=== PATIENT | male | born 1945 | race Caucasian/White ===

== ENCOUNTER 2019-08-17 19:07 | Inpatient (IN) ==
[2019-08-17] MEDS ORDERED: Ketorolac 15 MG/ML VIAL IVP PRN (21:34)
[2019-08-17] MEDS ORDERED: Naloxone 0.4 MG/ML INJ IVP PRN (21:34)
[2019-08-17] MEDS ORDERED: Ondansetron 4 MG/2 ML VIAL IVP PRN (21:34)
[2019-08-17] MEDS ORDERED: Acetaminophen 325 MG TABLET PO PRN (21:34)
[2019-08-17] MEDS ORDERED: Ringers Solution, Lactated 1,000 ML IVC SCH (21:45)
[2019-08-17] MEDS ORDERED: Dextrose Gel 15 GM/37.5 ML TUBE PO PRN ×2 (22:01)
[2019-08-17] MEDS ORDERED: D5% in Water 1,000 ML IVC PRN (22:01)
[2019-08-17] MEDS ORDERED: *HR* Dextrose 50 % in Water (Syg) 50 ML SYRINGE IVP PRN (22:01)
[2019-08-17] MEDS ORDERED: Gabapentin 300 MG CAPSULE PO ONE (23:28)
[2019-08-18] MEDS ORDERED: MOM Conc 10 ML UD.LIQ PO PRN ×2 (00:16→12:57)
[2019-08-18] MEDS ORDERED: Sennosides/Docusate Sodium TABLET PO PRN (00:16)
[2019-08-18] MEDS: Insulin LISPRO 300 UNITS/3 ML VIAL SQ SCH ×3 (01:00→18:00)
[2019-08-18] MEDS ORDERED: Morphine Sulfate 2 MG/ML SYRINGE IVP ONE (04:23)
[2019-08-18] MEDS ORDERED: Famotidine 20 MG/2 ML VIAL IVP ONE (05:53)
[2019-08-18 07:15] LABS: Basophils # 0.1 K/mcL (0.0-0.2); Basophils % 0.6 %; Eosinophils # 0.2 K/mcL (0.0-0.6); Eosinophils % 2.1 %; Hematocrit 44.6 % (37.5-50.1); Hemoglobin 13.8 g/dL (12.9-16.9); Immature Granulocytes % 0.5 % (0-4); Lymphocytes # 1.7 K/mcL (0.6-4.6); Lymphocytes % 20.7 %; Mean Corpuscular HGB Conc 30.9 g/dL (31.6-35.5); Mean Corpuscular Hemoglobin 28.2 pg (28.0-33.3); Mean Corpuscular Volume 91.2 fL (83.0-100.0); Mean Platelet Volume 11.1 fL (9.4-12.4); Monocytes # 0.5 K/mcL (0.0-1.3); Monocytes % 6.1 %; Neutrophils # 5.9 K/mcL (1.6-8.9); Platelet Count 141 K/mcL (140-400); Red Blood Count 4.89 M/mcL (4.19-5.50); Red Cell Distribution Width 13.4 % (11.5-14.5); White Blood Count 8.4 K/mcL (4.3-11.1)
[2019-08-18 07:17] LABS: INR 1.2; Prothrombin Time 13.7 Seconds (9.4-12.1)
[2019-08-18 07:32] LABS: BUN/Creatinine Ratio 34 (6-26); Blood Urea Nitrogen 32 mg/dL (8-23); Calcium 8.9 mg/dL (8.6-10.3); Carbon Dioxide 30 mEq/L (23-29); Chloride 103 mEq/L (98-107); Glucose 206 mg/dL (70-105); Osmolality,Calculated 301 (280-300); Potassium 3.9 mEq/L (3.5-5.1); Sodium 139 mEq/L (136-145); eGFR For African Americans > 60 (> 60); eGFR For Non-African Americans > 60 (> 60)
[2019-08-18] MEDS ORDERED: Aspirin Enteric Coated 81 MG Tablet PO SCH (09:00)
[2019-08-18] MEDS ORDERED: Metoprolol XL (24 HR) Succ 50 MG TAB.ER.24H PO SCH (09:00)
[2019-08-18] MEDS ORDERED: Dexamethasone 4 MG/ML VIAL ONE (09:37)
[2019-08-18] MEDS ORDERED: Lidocaine -MPF 2% 2 ML VIAL ONE ×2 (09:37)
[2019-08-18] MEDS ORDERED: Ondansetron 4 MG/2 ML VIAL ONE (09:37)
[2019-08-18] MEDS ORDERED: *HR* Propofol 200 MG/20 ML VIAL IVP ONE (10:03)
[2019-08-18] MEDS ORDERED: *HR* FentaNYL (PF) 100 MCG/2 ML VIAL ONE ×2 (10:03→11:07)
[2019-08-18] MEDS ORDERED: *HR* Succinylcholine 200 MG/10 ML VIAL IVP ONE (10:04)
[2019-08-18] MEDS ORDERED: Ethanol\\Acetic Acid\\Na Ace\\Ben 1,000 ML IRRIG.SOLN IR ONE (10:05)
[2019-08-18] MEDS ORDERED: *HR* HYDROmorphone PF 0.5 MG/0.5 ML SYRINGE IVP PRN ×2 (10:07→12:57)
[2019-08-18] MEDS ORDERED: *HR* OxyCODONE Immed Rel 5 MG TABLET PO PRN (10:07)
[2019-08-18] MEDS ORDERED: Ondansetron 4 MG/2 ML VIAL IVP ONE (10:07)
[2019-08-18] MEDS ORDERED: Famotidine 20 MG/2 ML VIAL ONE (10:16)
[2019-08-18] MEDS ORDERED: *HR* Rocuronium Bromide 50 MG/5 ML VIAL ONE (10:50)
[2019-08-18] MEDS ORDERED: *HR* PHENYLEPHRINE 1,000 MCG/10 ML SYRINGE IVP ONE (11:17)
[2019-08-18] MEDS ORDERED: EPHEDrine 50 MG/ML VIAL ONE (11:39)
[2019-08-18] MEDS ORDERED: *HR* Dextrose 50 % in Water (Syg) 50 ML SYRINGE IVP PRN (12:57)
[2019-08-18] MEDS ORDERED: Dextrose Gel 15 GM/37.5 ML TUBE PO PRN ×2 (12:57)
[2019-08-18] MEDS ORDERED: Sennosides 8.6 MG TABLET PO PRN (12:57)
[2019-08-18] MEDS ORDERED: D5% in Water 1,000 ML IVC PRN (12:57)
[2019-08-18] MEDS ORDERED: *HR* Promethazine 25 MG/ML VIAL IVP PRN (12:57)
[2019-08-18] MEDS ORDERED: Ondansetron 4 MG/2 ML VIAL IVP PRN (12:57)
[2019-08-18] MEDS ORDERED: Ringers Solution, Lactated 1,000 ML IVC SCH ×2 (12:57)
[2019-08-18] MEDS ORDERED: HYDROcodone BIT/Homatropine 5 MG TABLET PO PRN (12:57)
[2019-08-18] MEDS ORDERED: Naloxone 0.4 MG/ML INJ IVP PRN (12:57)
[2019-08-18 12:58] LABS: Hemoglobin 11.7 g/dL (12.9-16.9)
[2019-08-18] MEDS: Ascorbic Acid 500 MG TABLET PO SCH (16:00)
[2019-08-18] MEDS: ceFAZolin 2,000 MG in 0.9 % Sodium Chloride 100 ML IVPB SCH (17:38)
[2019-08-18] MEDS ORDERED: *HR* Heparin 5,000 UNIT/ML VIAL SQ SCH (18:00)
[2019-08-19] MEDS: ceFAZolin 2,000 MG in 0.9 % Sodium Chloride 100 ML IVPB SCH (02:03)
[2019-08-19 02:20] LABS: Hematocrit 29.4 % (37.5-50.1); Hemoglobin 9.3 g/dL (12.9-16.9); Immature Platelets 6.4 % (1.1-6.1); Mean Corpuscular HGB Conc 31.6 g/dL (31.6-35.5); Mean Corpuscular Hemoglobin 28.4 pg (28.0-33.3); Mean Corpuscular Volume 89.9 fL (83.0-100.0); Mean Platelet Volume 11.7 fL (9.4-12.4); Red Blood Count 3.27 M/mcL (4.19-5.50); Red Cell Distribution Width 13.5 % (11.5-14.5)
[2019-08-19 02:37] LABS: BUN/Creatinine Ratio 40 (6-26); Blood Urea Nitrogen 46 mg/dL (8-23); Carbon Dioxide 25 mEq/L (23-29); Chloride 102 mEq/L (98-107); Potassium 4.3 mEq/L (3.5-5.1); Sodium 134 mEq/L (136-145); eGFR For African Americans > 60 (> 60); eGFR For Non-African Americans > 60 (> 60)
[2019-08-19 03:09] LABS: Glucose 264 mg/dL (70-105); Osmolality,Calculated 299 (280-300)
[2019-08-19] MEDS: Insulin LISPRO 300 UNITS/3 ML VIAL SQ SCH ×3 (07:46→18:13)
[2019-08-19] MEDS: Metoprolol XL (24 HR) Succ 50 MG TAB.ER.24H PO SCH (07:47)
[2019-08-19] MEDS: Multivit/Ca/Min/Fe/FA 1 TAB TABLET PO SCH (07:47)
[2019-08-19] MEDS: Ascorbic Acid 500 MG TABLET PO SCH ×2 (07:47→18:13)
[2019-08-19] MEDS: Aspirin Enteric Coated 81 MG Tablet PO SCH (07:48)
[2019-08-19] MEDS: *HR* OxyCODONE Immed Rel 5 MG TABLET PO PRN (07:55)
[2019-08-19 13:44] LABS: Hematocrit 29.6 % (37.5-50.1); Hemoglobin 9.4 g/dL (12.9-16.9)
[2019-08-19] MEDS: Insulin DETEMIR 100 UNIT/ML X5UNITS SQ SCH (18:13)
[2019-08-20 02:47] LABS: Hematocrit 25.7 % (37.5-50.1); Hemoglobin 8.4 g/dL (12.9-16.9); Mean Corpuscular HGB Conc 32.7 g/dL (31.6-35.5); Mean Corpuscular Hemoglobin 29.1 pg (28.0-33.3); Mean Corpuscular Volume 88.9 fL (83.0-100.0); Mean Platelet Volume 11.5 fL (9.4-12.4); Platelet Count 115 K/mcL (140-400); Red Blood Count 2.89 M/mcL (4.19-5.50); Red Cell Distribution Width 13.6 % (11.5-14.5); White Blood Count 7.3 K/mcL (4.3-11.1)
[2019-08-20 03:11] LABS: BUN/Creatinine Ratio 42 (6-26); Blood Urea Nitrogen 32 mg/dL (8-23); Calcium 8.3 mg/dL (8.6-10.3); Carbon Dioxide 27 mEq/L (23-29); Chloride 101 mEq/L (98-107); Glucose 152 mg/dL (70-105); Osmolality,Calculated 288 (280-300); Potassium 4.1 mEq/L (3.5-5.1); Sodium 134 mEq/L (136-145); eGFR For African Americans > 60 (> 60); eGFR For Non-African Americans > 60 (> 60)
[2019-08-20] MEDS: *HR* OxyCODONE Immed Rel 5 MG TABLET PO PRN (05:48)
[2019-08-20] MEDS: Aspirin Enteric Coated 81 MG Tablet PO SCH (08:13)
[2019-08-20] MEDS: Ascorbic Acid 500 MG TABLET PO SCH (08:14)
[2019-08-20] MEDS: Multivit/Ca/Min/Fe/FA 1 TAB TABLET PO SCH (08:14)
[2019-08-20] MEDS: Metoprolol XL (24 HR) Succ 50 MG TAB.ER.24H PO SCH (08:23)
[2019-08-20] MEDS: Insulin LISPRO 300 UNITS/3 ML VIAL SQ SCH ×2 (08:26→12:43)
[2019-08-20] MEDS: Insulin DETEMIR 100 UNIT/ML X5UNITS SQ SCH (08:28)
[2019-08-20 11:58] VITALS: BP 100/67
== END 2019-08-20 15:49 | DRG 470 ==
LOC: 3NENU → SUATTDRO 20:36
PROVIDERS: ADMIT Internal Medicine; ATTEND Internal Medicine

== ENCOUNTER 2021-03-07 02:45 | Observation (INO) ==
[2021-03-07] MEDS ORDERED: Naloxone 0.4 MG/ML INJ IVP PRN (09:41)
[2021-03-07] MEDS ORDERED: Acetaminophen 325 MG TABLET PO PRN (09:41)
[2021-03-07] MEDS ORDERED: Ondansetron 4 MG/2 ML VIAL IVP PRN (09:41)
[2021-03-07] MEDS ORDERED: *HR* Dextrose 50 % in Water (Syg) 50 ML SYRINGE IVP PRN (10:23)
[2021-03-07] MEDS ORDERED: D5% in Water 1,000 ML IVC PRN (10:23)
[2021-03-07] MEDS ORDERED: Dextrose Gel 15 GM/37.5 ML TUBE PO PRN ×2 (10:23)
[2021-03-07] MEDS: Pantoprazole 40 MG VIAL IVP SCH ×2 (11:22→17:56)
[2021-03-07] MEDS: Insulin LISPRO 300 UNITS/3 ML VIAL SUBQ SCH ×2 (13:36→17:49)
[2021-03-07] MEDS ORDERED: *HR* Midazolam HCl 5 MG/5 ML VIAL IVP ONE ×2 (16:11→16:37)
[2021-03-07] MEDS ORDERED: *HR* FentaNYL (PF) 100 MCG/2 ML VIAL ONE (16:11)
[2021-03-07] MEDS ORDERED: *HR* FentaNYL (PF) 100 MCG/2 ML VIAL IVP ONE (16:37)
[2021-03-07] MEDS ORDERED: Tetracaine/Benzocaine/Butamben 1 SPRAY AEROSOL MM ONE (16:37)
[2021-03-08] MEDS: Insulin LISPRO 300 UNITS/3 ML VIAL SUBQ SCH ×4 (00:34→18:02)
[2021-03-08 01:57] LABS: Hematocrit 41.3 % (37.5-50.1); Hemoglobin 13.8 g/dL (12.9-16.9); Mean Corpuscular HGB Conc 33.4 g/dL (31.6-35.5); Mean Corpuscular Hemoglobin 29.2 pg (28.0-33.3); Mean Corpuscular Volume 87.3 fL (83.0-100.0); Mean Platelet Volume 11.4 fL (9.4-12.4); Platelet Count 151 K/mcL (140-400); Red Blood Count 4.73 M/mcL (4.19-5.50); Red Cell Distribution Width 13.5 % (11.5-14.5); White Blood Count 5.1 K/mcL (4.3-11.1)
[2021-03-08 02:15] LABS: BUN/Creatinine Ratio 41 (6-26); Blood Urea Nitrogen 36 mg/dL (8-23); Calcium 8.6 mg/dL (8.6-10.3); Carbon Dioxide 29 mEq/L (23-29); Chloride 104 mEq/L (98-107); Glucose 125 mg/dL (70-105); Osmolality,Calculated 298 (280-300); Potassium 3.3 mEq/L (3.5-5.1); Sodium 139 mEq/L (136-145); eGFR For African Americans > 60 (> 60); eGFR For Non-African Americans > 60 (> 60)
[2021-03-08 02:18] LABS: Magnesium 2.1 mg/dL (1.6-2.6); Phosphorous 3.1 mg/dL (2.7-4.5)
[2021-03-08] MEDS: *HR* Enoxaparin 40 MG/0.4 ML SYRINGE SQ SCH (05:36)
[2021-03-08] MEDS: Pantoprazole 40 MG VIAL IVP SCH ×2 (05:36→18:01)
[2021-03-08] MEDS ORDERED: Potassium Chloride Elixir 20 MEQ/15 ML UDC PO ONE (07:16)
[2021-03-08] MEDS ORDERED: polyethylene glycoL 3350 17 GM POWD.PACK PO ONE (09:39)
[2021-03-08 14:30] LABS: Influenza A PCR Negative (Negative); Influenza B PCR Negative (Negative); Resp. Syncytial Virus PCR Negative (Negative); SARS-CoV-2 by PCR (In House) Negative (Negative)
[2021-03-09] MEDS: Insulin LISPRO 300 UNITS/3 ML VIAL SUBQ SCH ×2 (00:03→05:34)
[2021-03-09 01:03] LABS: Basophils % 0.7 %; Eosinophils # 0.1 K/mcL (0.0-0.6); Eosinophils % 2.6 %; Hematocrit 39.8 % (37.5-50.1); Hemoglobin 12.9 g/dL (12.9-16.9); Immature Granulocytes % 0.2 % (0-4); Lymphocytes # 1.8 K/mcL (0.6-4.6); Lymphocytes % 42.7 %; Mean Corpuscular HGB Conc 32.4 g/dL (31.6-35.5); Mean Corpuscular Hemoglobin 28.2 pg (28.0-33.3); Mean Corpuscular Volume 86.9 fL (83.0-100.0); Mean Platelet Volume 11.6 fL (9.4-12.4); Monocytes # 0.3 K/mcL (0.0-1.3); Monocytes % 7.7 %; Neutrophils # 1.9 K/mcL (1.6-8.9); Platelet Count 141 K/mcL (140-400); Red Blood Count 4.58 M/mcL (4.19-5.50); Red Cell Distribution Width 13.5 % (11.5-14.5); Segmented Neutrophils % 46.1 %; White Blood Count 4.2 K/mcL (4.3-11.1)
[2021-03-09 01:19] LABS: Alanine Aminotransferase 12 Units/L (7-52); Albumin 3.4 g/dL (3.5-5.7); Albumin/Globulin Ratio 1.4 (1.1-2.2); Alkaline Phosphatase 61 Units/L (34-104); Aspartate Amino Transferase 14 Units/L (13-39); BUN/Creatinine Ratio 35 (6-26); Bilirubin,Total 0.7 mg/dL (0.3-1.0); Blood Urea Nitrogen 34 mg/dL (8-23); Calcium 8.6 mg/dL (8.6-10.3); Carbon Dioxide 30 mEq/L (23-29); Chloride 104 mEq/L (98-107); Globulin 2.5 g/dL (2.4-3.5); Glucose 210 mg/dL (70-105); Osmolality,Calculated 300 (280-300); Potassium 4.1 mEq/L (3.5-5.1); Sodium 138 mEq/L (136-145); Total Protein 5.9 g/dL (6.4-8.9); eGFR For African Americans > 60 (> 60); eGFR For Non-African Americans > 60 (> 60)
[2021-03-09 02:24] VITALS: PULSE 83; O2SAT 96
[2021-03-09] MEDS: *HR* Enoxaparin 40 MG/0.4 ML SYRINGE SQ SCH (05:32)
[2021-03-09] MEDS: Pantoprazole 40 MG VIAL IVP SCH (05:34)
[2021-03-09 07:20] VITALS: BP 155/98; TEMP 97.7
== END 2021-03-09 08:57 ==
LOC: 3BNU
PROVIDERS: ADMIT Internal Medicine; ATTEND Internal Medicine
PROC: ENDOEBX (2021-03-07 16:15)

== ENCOUNTER 2021-12-10 20:18 | Inpatient (IN) ==
[2021-12-10] MEDS ORDERED: Acetaminophen 325 MG TABLET PO PRN (23:10)
[2021-12-10] MEDS ORDERED: Naloxone 0.4 MG/ML INJ IVP PRN (23:10)
[2021-12-10] MEDS ORDERED: D5% in Water 1,000 ML IVC PRN (23:17)
[2021-12-10] MEDS ORDERED: Dextrose Gel 15 GM/37.5 ML TUBE PO PRN ×2 (23:17)
[2021-12-10] MEDS ORDERED: *HR* Dextrose 50 % in Water (Syg) 50 ML SYRINGE IVP PRN (23:17)
[2021-12-11 06:07] LABS: Hematocrit 45.2 % (37.5-50.1); Hemoglobin 14.9 g/dL (12.9-16.9); Mean Corpuscular Hemoglobin 28.3 pg (28.0-33.3); Mean Corpuscular Volume 85.8 fL (83.0-100.0); Mean Platelet Volume 11.1 fL (9.4-12.4); Platelet Count 149 K/mcL (140-400); Red Blood Count 5.27 M/mcL (4.19-5.50); Red Cell Distribution Width 13.6 % (11.5-14.5)
[2021-12-11 06:13] LABS: INR 1.1; Prothrombin Time 12.3 Seconds (9.4-12.1)
[2021-12-11 07:05] LABS: BUN/Creatinine Ratio 21 (6-26); Blood Urea Nitrogen 21 mg/dL (8-23); Carbon Dioxide 25 mEq/L (23-29); Chloride 107 mEq/L (98-107); Chol/HDL Ratio 5.9 (0-4.9); Cholesterol 190 mg/dL (< 200); Glucose 124 mg/dL (70-105); HDL Cholesterol 32 mg/dL (40-59); LDL Cholesterol,Calculated 132 mg/dL (< 100); Osmolality,Calculated 294 (280-300); Potassium 3.9 mEq/L (3.5-5.1); Sodium 140 mEq/L (136-145); Triglycerides 129 mg/dL (< 150)
[2021-12-11 07:07] LABS: Estimated Average Glucose 177 mg/dl; Hemoglobin A1C 7.8 %
[2021-12-11 07:25] LABS: Troponin I < 0.03 ng/mL (< 0.04)
[2021-12-11] MEDS ORDERED: Insulin LISPRO 300 UNITS/3 ML VIAL SUBQ SCH (07:30)
[2021-12-11] MEDS: Insulin LISPRO 300 UNITS/3 ML VIAL SUBQ SCH ×3 (07:32→18:24)
[2021-12-11] MEDS: Aspirin 81 MG TAB.CHEW PO SCH (10:55)
[2021-12-12] MEDS: Insulin LISPRO 300 UNITS/3 ML VIAL SUBQ SCH ×5 (00:25→23:26)
[2021-12-12] MEDS: Aspirin 81 MG TAB.CHEW PO SCH (06:57)
[2021-12-12] MEDS: Metoprolol XL (24 HR) Succ 50 MG TAB.ER.24H PO SCH (08:54)
[2021-12-12] MEDS ORDERED: D5% in 0.9% NACL 1,000 ML IVC SCH (09:15)
[2021-12-12] MEDS ORDERED: E-Z-HD (BARIUM SULF) SUSPENSION PO ONE (12:25)
[2021-12-12] MEDS ORDERED: E-Z-PAQUE (BARIUM SULF) SUSP 1 BOTTLE PO ONE (12:25)
[2021-12-13] MEDS: Insulin LISPRO 300 UNITS/3 ML VIAL SUBQ SCH ×3 (05:34→16:59)
[2021-12-13] MEDS: Aspirin 81 MG TAB.CHEW PO SCH (08:07)
[2021-12-13] MEDS: Metoprolol XL (24 HR) Succ 50 MG TAB.ER.24H PO SCH (08:07)
[2021-12-13] MEDS: lisinopriL 5 MG TABLET PO SCH ×2 (08:07→08:19)
[2021-12-13 15:12] VITALS: BP 151/94; PULSE 86; TEMP 98.5; O2SAT 96
== END 2021-12-13 18:34 | DRG 65 ==
LOC: 3BNU → SUATTDRO 22:49
PROVIDERS: ADMIT Internal Medicine; ATTEND Internal Medicine